=== PATIENT | female | born 1990 | race Caucasian/White ===

== ENCOUNTER → 2019-01-19 08:44 | Outpatient (CLI) | payer OTHER, SELFPAY ==
[2019-01-21 14:50] LABS: Strep Grp B PCR POS for Grp B Strep
== END ==
PROVIDERS: PCP Family Medicine; Visit Provider Family Medicine
DX: Z34.83 Encounter for supervision of other normal pregnancy, third trimester (principal); Z3A.36 36 weeks gestation of pregnancy
CPT/HCPCS: 87653

== ENCOUNTER 2019-02-14 05:22 | Inpatient (IN) | payer OTHER, SELFPAY ==
[2019-02-14] MEDS: PENICILLIN G POTASSIUM 5,000,000 UNIT in DEXTROSE 5% IN WATER 250 ML IV (06:15)
[2019-02-14] MEDS: LACTATED RINGERS 1,000 ML 125 ML IV ×2 (06:15→07:37)
[2019-02-14 06:27] LABS: Add Manual Diff / Slide Review NO; Basophils Absolute Auto 100 /uL (0-100); Basophils Percent Auto 0.7 % (0-2); Eosinophils Absolute Auto 200 /uL (0-450); Eosinophils Percent Auto 0.9 % (2-4); Hematocrit 36.7 % (36-46); Hemoglobin 12.5 g/dL (12.0-16.0); Lymphocytes Absolute Auto 3400 /uL (1100-4500); Lymphocytes Percent Auto 17.6 % (25-40); Mean Corpuscular Hemoglobin 30.2 PG (26-34); Mean Corpuscular Volume 88.8 fL (80-100); Monocytes Absolute Auto 1200 /uL (0-900); Monocytes Percent Auto 6.1 % (3-14); Neutrophils Absolute Auto 14300 /uL (1500-7000); Neutrophils Percent Auto 74.7 % (50-75); Platelet Count 214 X10^3/uL (150-400); Red Blood Cell Count 4.13 X10^6/uL (4.0-5.2); Red Cell Distribution Width 13.9 % (11.6-14.8); White Blood Cell Count 19.2 X10^3/uL (4.5-11.0)
[2019-02-14] MEDS: CALCIUM CARBONATE 500 MG TAB 1000 MG PO (06:40)
[2019-02-14] MEDS: fentaNYL 100 MCG/2 ML INJ IV (06:50)
--- NOTE | 2019-02-14 06:50 | PM.OBHP.1 ---
OB HPI Date/Time Date of admission: 02/14/19 Date Patient Seen: 02/14/19 Time Patient Seen: 08:30 History of Present Condition Chief complaint: Labor : 2 Para: 1 Estimated Date of Delivery: 02/12/19 Estimated Gestational Age (weeks): 40w2s Narrative: Sophy Shepherd is a 28 year old at 40w2d who presented with regular painful contractions. She reports having contractions starting around midnight, progressing in intensity and frequency. She denies any vaginal bleeding or LOF. She has been feeling her baby move regularly. History of Present care: good care Dating criteria: LMP confirmed by 1st trimester US Ultrasounds: normal 1st trimester US and normal mid trimester US Obstetrical complications: none Medical complications: none Preadmission Labs Blood type: O (+) positive -: Antibody screen: negative, Cystic fibrosis screen: negative, GBS status: positive, HBsAG: negative, HIV: negative and RPR/VDLR: negative -: Rubella: immune and Varicella: immune HCT: 35.2 PAP: Normal Quad screen: Normal 1 hr GTT: 103 Prior (ies) History: 11/17/16 - at 40.1wk, 8lb9oz, female Evaluation Evaluation Baseline heart rate: 125 Variability: Moderate (11-25) monitor accelerations: Present monitor decelerations: Absent Uterine Contraction Intensity: Strong/Firm Category of Tracing: I Cervical dilation (cm): 10 Cervical effacement (%): 100 station: +1 Laboratory results: Laboratory Tests 02/14/19 06:15 WBC 19.2 H RBC 4.13 Hgb 12.5 Hct 36.7 MCV 88.8 MCH 30.2 MCHC 34.0 RDW 13.9 Plt Count 214 Neut % (Auto) 74.7 Lymph % (Auto) 17.6 L [place] % (Auto) 6.1 Eos % (Auto) 0.9 L Baso % (Auto) 0.7 Neut # (Auto) 21112 H Lymph # (Auto) 3400 [place] # (Auto) 1200 H Eos # (Auto) 200 Baso # (Auto) 100 PFSH Social History Smoking Status: Never smoker alcohol intake: never Social History Smoking Status: Never smoker alcohol intake: never Meds Allergies Allergy/AdvReac Type Severity Reaction Status Date / Time No Known Drug Allergies Allergy Unknown Verified 03/08/18 09:43 [NO KNOWN DRUG ALLERGIES] Exam Narrative Exam Narrative: Gen: NAD, laying in bed, breathing through contractions CV: RRR, no murmurs Resp: clear to auscultation bilaterally Abd: soft, nondistended, gravid Ext: trace edema Objective Labs Result Diagrams: 02/14/19 06:15 Labs: Laboratory Results - last 24 hr 02/14/19 06:15 WBC 19.2 H RBC 4.13 Hgb 12.5 Hct 36.7 MCV 88.8 MCH 30.2 MCHC 34.0 RDW 13.9 Plt Count 214 Neut % (Auto) 74.7 Lymph % (Auto) 17.6 L [place] % (Auto) 6.1 Eos % (Auto) 0.9 L Baso % (Auto) 0.7 Neut # (Auto) 03143 H Lymph # (Auto) 3400 [place] # (Auto) 1200 H Eos # (Auto) 200 Baso # (Auto) 100 Assessment and Plan Assessment and Plan Assessment and Plan narrative: 28yo at 40w2d here in active labor. No complications with . SROM with clear fluid. GBS positive, Rh positive. - Expectant management, anticipate - Epidural in place for pain control - FHT reassuring - GBS positive, penicillin prophylaxis given at 6:15am
[2019-02-14] MEDS: OXYTOCIN 10 UNIT/ML VIAL IM (08:59)
--- NOTE | 2019-02-14 09:26 | PM.OBPRVD ---
Delivery date: 02/14/19 Intrapartal events: None Cervical ripening method: none Induction method: none Delivery monitor: external FHT Route of delivery: Episiotomy description: None L&D Laceration Description: None Estimated blood loss (mL): 200 Anesthesia type: Epidural Complications: None Narrative: PROCEDURE: at 40w2d presented in active labor and was admitted to Labor and Delivery. The patient progressed through the 1st stage over 8.5 hours. Pain was controlled with an epidural. There was SROM with clear fluid present. The patient progressed through the 2nd stage over 30 minutes and delivered a viable male with APGARs 8/9 at 8:55am via . The cord was clamped and cut after it stopped pulsing. The perineum and vagina were inspected with no lacerations present. PREPROCEDURE DIAGNOSIS: Intrauterine at 40w2d GBS positive RH positive POSTPROCEDURE DIAGNOSIS: Intrauterine at 40w2d, delivered Same as preprocedure ROM APPEARANCE: Clear BABY A WEIGHT: 8lb2.9oz BABY A NUCHAL CORD: No BABY A CORD GASES OBTAINED: No PLACENTA DELIVERY TIME: 8:59am PLACENTA APPEARANCE: Intact [place] Baby 1: Infant gender: Male Presentation: vertex position: Right Occiput Anterior Placenta delivery description: Spontaneous cord vessel description: 3 Vessels score (1 min): 8 score (5 min): 9 Plan for aftercare: Normal care
[2019-02-14 11:57] VITALS: BP 110/72
[2019-02-14] MEDS: LANOLIN OINT 7 GM 1 APPLIC TOP (15:12)
[2019-02-14] MEDS: IBUPROFEN 600 MG TABLET PO ×2 (15:12→21:55)
[2019-02-14] MEDS: OXYCODONE/ACETAMINOPHEN 5/325 TABLET 1 TAB PO (21:55)
[2019-02-15] MEDS: OXYCODONE/ACETAMINOPHEN 5/325 TABLET 1 TAB PO (08:48)
[2019-02-15] MEDS: PRENATAL VIT,CALC/IRON/FOLIC 1 TABLET 1 TAB PO (08:48)
[2019-02-15] MEDS: IBUPROFEN 600 MG TABLET PO (08:48)
[2019-02-15] MEDS: DOCUSATE 250 MG CAPSULE PO (08:49)
--- NOTE | 2019-02-15 09:01 | PM.OBDS.1 ---
Discharge Providers Date of admission: 02/14/19 05:22 Discharge Date: 02/15/19 Primary care physician: Zelda Dill MD Consults: 02/14/19 05:54 Consult to Anesthesiology Urgent Comment: Consulting Provider: Alley Jefferson Reason for consultation: pt wants epidural Has provider been notified: No 02/14/19 11:56 Consult to Mixing Roll Operator Routine Comment: Discharge provider: Zelda Dill MD Summary Date Patient Seen: 02/15/19 Time Patient Seen: 08:00 Procedures: Spontaneous vaginal delivery Hospital Course: The pt presented in active labor. She received an epidural for pain control. She received one dose of IV Penicillin for GBS prophylaxis. Her labor progressed without intervention and she had a of a viable baby boy without complications. There were no lacerations. , there were no complications. At the time of discharge she was voiding, ambulating, and passing flatus without difficulty. Her lochia was decreasing appropriately. Her pain was well controlled. She was with good latch. She is undecided regarding contraception. She will f/u in 6 weeks for her appt. Peripartum Data Infant Delivery Method: Natural Vaginal Laceration description: None Episiotomy description: None Procedures: Spontaneous vaginal delivery complications: none [place] 1: Gender: Male Disposition of : home Time Spent with Patient Total time spent providing and/or coordinating discharge services: Greater than 30 minutes Objective Labs Result Diagrams: 02/14/19 06:15 Exam Narrative Exam Narrative: Gen: NAD, sitting comfortably in bed, appears well CV: RRR, no murmurs Resp: clear to auscultation bilaterally Abd: soft, appropriately tender, nondistended, fundus firm and below the umbilicus, normoactive bowel sounds Ext: trace edema Discharge Plan Discharge Plan Patient Disposition: Home Discharge Med Rec/Prescriptions Prescriptions: New acetaminophen 325 mg Tablet 650 mg PO Q6HR PRN (Reason: Pain, Mild (1-3)) Qty: 30 RF: 0 Dermoplast (with menthol) 20-0.5 % Aerosol 1 spray topical Q1HR PRN (Reason: perineal pain) Qty: 15 RF: 0 ibuprofen 600 mg Tablet 600 mg PO Q6HR PRN (Reason: Pain, Mild (1-3)) Qty: 30 RF: 0 docusate sodium 250 mg Capsule 250 mg PO DAILY Qty: 30 RF: 0 Ikj-Y-Oauign Cream 1 applic topical PRN PRN (Reason: Tenderness) Qty: 15 RF: 0 Prenatabs Rx 29 mg iron- 1 mg Tablet 1 tab PO DAILY Qty: 30 RF: 0 Follow up/Referrals: Zelda Dill MD [Primary Care Provider] - 6 Weeks (Please follow up at Dr. Gallagher office with Dr. Jim on March 30 at 10am. ) Provider Discharge Instructions Diet: Diet as Tolerated and Regular Skin/Wound/Dressing Care Report to your healthcare provider any signs of infection, such as:: chills, fever, increased pain and unusual drainage Visit Report/Discharge Packet Instructions: DI for Labor and Delivery, Vaginal Stand Alone Forms: Discharge: Care Visit Report Forms: Stroke Signs & Symptoms Discharge Data Primary Care Provider: Zelda Dill Attending Provider: Zelda Dill Admit Date/Time: 02/14/19 05:22 Discharges patient from system. Discharge Date/Time: 02/15/19 13:10
[2019-02-15 10:19] VITALS: BP 99/64; PULSE 91; RESP 16; TEMP 36.7
== END 2019-02-15 13:10 | disposition home or self-care (01) | DRG 807 ==
PROVIDERS: Admitting Provider Family Medicine; PCP Family Medicine; Visit Provider Family Medicine
DX: O99.824 Streptococcus B carrier state complicating childbirth (principal); Z37.0 Single live birth; Z3A.40 40 weeks gestation of pregnancy
CPT/HCPCS: 01967; 59050; 59410; 85025; 86850; 86900; 86901; G0379; J2540; J2590; J3010